=== PATIENT | male | born 1995 | race Asian ===

== ENCOUNTER 2018-01-20 12:22 | Emergency (ER) | payer MEDICAID ==
[2018-01-20 12:39] VITALS: BP 143/73
--- NOTE | 2018-01-20 13:11 | XRAY Preliminary Report ---
Exam: XR FOOT 3 VIEW LT IMPRESSION: No acute fracture or subluxation. [facility] SITE ID: [id number]
--- NOTE | 2018-01-20 13:12 | XRAY Report ---
EXAM: LEFT FOOT RADIOGRAPHY EXAM DATE: 01/20/2018 12:47 PM. CLINICAL HISTORY: Trauma. COMPARISON: None. TECHNIQUE: 3 views. FINDINGS: Bones: Normal. No fractures or bone lesions. Joints: Normal. No subluxations. Soft Tissues: There are mild linear dorsal hindfoot and midfoot soft tissue calcifications. IMPRESSION: No acute fracture or subluxation. [facility] Referring Provider Line: [phone] SITE ID: [id number]
--- NOTE | 2018-01-20 13:20 | XRAY Report ---
EXAM: LEFT ANKLE RADIOGRAPHY EXAM DATE: 01/20/2018 12:46 PM. CLINICAL HISTORY: Trauma. COMPARISON: None. TECHNIQUE: 3 views. FINDINGS: Bones: Normal. No fractures or bone lesions. Joints: Normal. No effusion. No subluxations. The ankle mortise is normally aligned. Soft Tissues: There is a corticated ossification located dorsal to the distal talus on the lateral im age. IMPRESSION: Negative for acute fracture and subluxation. [facility] Referring Provider Line: [phone] SITE ID: [id number]
--- NOTE | 2018-01-20 13:20 | XRAY Preliminary Report ---
Exam: XR ANKLE 3 VIEW LT IMPRESSION: Negative for acute fracture and subluxation. [facility] SITE ID: [id number]
--- NOTE | 2018-01-20 13:27 | ED Physician Documentation ---
History of Present Illness - Stated complaint Stated Complaint: LT FOOT PX - Chief complaint Chief Complaint: Ext Problem - History obtained from History obtained from: Patient - History of Present Illness Timing: How many weeks ago (2) Pain level max: 5 Pain level now: 4 Improved by: rest Worsened by: walking - Additonal information Additional information: 22 year old male rolled his L foot and ankle 2 weeks ago while playing soccer. States has continued pain since that time. No pain initially. State has pain with walking. Has not taken anything for pain. Review of Systems Neurologic: denies: Focal weakness, Numbness PD PAST MEDICAL HISTORY - Past Medical History Past Medical History: No - Past Surgical History Past Surgical History: No - Present Medications Home Medications: Ambulatory Orders Medication Instructions Recorded Confirmed Ibuprofen [Motrin] 800 mg PO Q8H PRN #30 tablet 01/20/18 - Allergies Allergies/Adverse Reactions: Allergies Allergy/AdvReac Type Severity Reaction Status Date / Time No Known Drug Allergies Allergy Verified 01/20/18 13:33 - Social History Does the pt smoke?: Yes Smoking Status: Current every day smoker Does the pt drink ETOH?: Yes ETOH Use: Beer, Liquor Does the pt have substance abuse?: Yes Substance Use and Type: Marijuana - Immunizations Immunizations are current?: Yes - POLST Patient has POLST: No PD ED PE NORMAL - Vitals Vital signs reviewed: Yes - General General: Alert and oriented X 3, No acute distress - Derm Derm: Warm and dry - Extremities Extremities: Other (L ankle/foot. Mild diffuse TTP over the dorsum of the L foot and anterior aspect of the ankle. o/w normal exam.) - Neuro Neuro: Alert and oriented X 3 - Psych Psych: Normal mood, Normal affect Results - Vitals Vitals: Vital Signs - 24 hr 01/20/18 12:29 Temperature 36.8 C Heart Rate 54 L Respiratory 16 Rate Blood Pressure 143/73 H O2 Saturation 100 - Rads (name of study) L foot xray Radiology: Prelim report reviewed, EMP read contemporaneously, See rad report ( normal) L ankle xray Radiology: Prelim report reviewed, EMP read contemporaneously, See rad report ( normal.) PD MEDICAL DECISION MAKING - ED course Complexity details: reviewed results, re-evaluated patient, considered differential, d/w patient ED course: Patient is a 22-year-old male who presents with a left foot sprain. Declines a walking boot and I think this is reasonable. Will place on crutches and make weightbearing as tolerated. Will prescribe NSAIDs for home. Patient counseled regarding signs and symptoms for which I believe and urgent re-evaluation would be necessary. Patient with good understanding of and agreement to plan and is comfortable going home at this time This document was made in part using voice recognition software. While efforts are made to proofread this document, sound alike and grammatical errors may occur. Departure - Departure Disposition: Home, Self Care Clinical Impression: Foot sprain Qualifiers: Encounter type: initial encounter Laterality: left Qualified Code(s): S93.602A - Unspecified sprain of left foot, initial encounter Condition: Good Instructions: ED Sprain Foot Follow-Up: your,doctor in 1 week [Other] Prescriptions: Ibuprofen [Motrin] 800 mg PO Q8H PRN #30 tablet PRN Reason: PAIN &/OR FEVER Comments: You may bear weight as tolerated. Follow up with your doctor in 1 week. Forms: Activity restrictions Discharge Date/Time: 01/20/18 13:41
== END 2018-01-20 13:41 | disposition home or self-care (01) ==
LOC: ED 12:22
DX: S93.602A Unspecified sprain of left foot, initial encounter (principal); X50.9XXA Other and unspecified overexertion or strenuous movements or postures, initial encounter; Y93.66 Activity, soccer; F17.200 Nicotine dependence, unspecified, uncomplicated
CPT/HCPCS: 99283

== ENCOUNTER 2018-09-01 14:38 | Emergency (ER) | payer MEDICAID ==
[2018-09-01 14:45] VITALS: BP 155/75
[2018-09-01] MEDS ORDERED: AZITHROMYCIN 250 MG TABLET PO STA ×2 (14:55→14:58)
--- NOTE | 2018-09-01 14:56 | ED Physician Documentation ---
History of Present Illness - Stated complaint Stated Complaint: LABS REQUESTED - Chief complaint Chief Complaint: General - History obtained from History obtained from: Patient - History of Present Illness Timing: Other (0His girlfriend tested positive for chlamydia about a week ago. He has no symptoms but would like to be tested and/or treated.) Review of Systems Constitutional: denies: Fever, Chills GI: denies: Abdominal Pain, Nausea, Vomiting : denies: Dysuria, Frequency PD PAST MEDICAL HISTORY - Past Surgical History Past Surgical History: No - Present Medications Home Medications: Ambulatory Orders Medication Instructions Recorded Confirmed Ibuprofen [Motrin] 800 mg PO Q8H PRN #30 tablet 01/20/18 - Allergies Allergies/Adverse Reactions: Allergies Allergy/AdvReac Type Severity Reaction Status Date / Time No Known Drug Allergies Allergy Verified 09/01/18 14:42 - Social History Does the pt smoke?: Yes Smoking Status: Current every day smoker Does the pt drink ETOH?: Yes Does the pt have substance abuse?: Yes - Immunizations Immunizations are current?: Yes - POLST Patient has POLST: No PD ED PE NORMAL - Vitals Vital signs reviewed: Yes - General General: Alert and oriented X 3, No acute distress - Abdomen Abdomen: Normal bowel sounds, Soft, Non tender - Neuro Neuro: Alert and oriented X 3, Normal speech Results - Vitals Vitals: Vital Signs - 24 hr 09/01/18 14:39 Temperature 36.2 C L Heart Rate 93 Respiratory 20 Rate Blood Pressure 155/75 H O2 Saturation 100 Departure - Departure Disposition: Home, Self Care Clinical Impression: Concern about STD in male without diagnosis Condition: Good Record reviewed to determine appropriate education?: Yes Instructions: ED STD Male Treated Comments: Your blood pressure was elevated today on check into the emergency department. This does not mean that you have hypertension, it is a common phenomenon to come to the emergency department and have elevated blood pressure. I recommend that you see your primary care physician within the week to have it rechecked when you are feeling better.
== END 2018-09-01 15:06 | disposition home or self-care (01) ==
LOC: ED 14:38
DX: Z20.2 Contact with and (suspected) exposure to infections with a predominantly sexual mode of transmission (principal); R03.0 Elevated blood-pressure reading, without diagnosis of hypertension; F17.200 Nicotine dependence, unspecified, uncomplicated
CPT/HCPCS: 87491; 87591; 99281; 99283; A9270

== ENCOUNTER 2018-09-18 15:20 | Emergency (ER) | payer MEDICAID ==
--- NOTE | 2018-09-18 16:20 | ED Physician Documentation ---
PD HPI SKIN - Stated complaint Stated Complaint: FACE SWOLLEN/RASH - Chief complaint Chief Complaint: Wound - History obtained from History obtained from: Patient - History of Present Illness Timing - onset: How many weeks ago (3) Timing - duration: Weeks (3) Timing - details: Gradual onset, Still present Location: Face, RUE, LUE Quality / character: Itchy, Discolored, Swelling Associated symptoms: Facial swelling. No: Fever, Myalgias, Joint pain, Headache, Dyspnea, Abd pain, N/V/D, Urinary sx Contributing factors: Exposed to soap / lotion, Other (wears latex gloves at work) Similar symptoms before: Has not had sx before Recently seen: Emergency Dept - Additional information Additional information: 22-year-old male reports that he is developed some itching and rash to the top of his hands bilaterally and on the dorsum only. He has had this for about 3 weeks it itches a lot and he does note that he wears latex gloves at work. He has been wearing his latex gloves for years and he does not think this is the issue. He does have allergy to lavender and he also indicates that his face is now broken out over the past week after shampooing his hair with a pomegranate shampoo. He states this happened immediately afterward and has persisted. He is also recently been treated for chlamydia and he states that he did have intercourse again with a condom he is concerned about this and wants to be retested and treated. Review of Systems Constitutional: denies: Fever, Chills, Myalgias Eyes: denies: Decreased vision Ears: denies: Ear pain Nose: denies: Rhinorrhea / runny nose, Congestion Throat: denies: Sore throat Cardiac: denies: Chest pain / pressure, Palpitations Respiratory: denies: Dyspnea, Cough GI: denies: Abdominal Pain, Nausea, Vomiting : denies: Dysuria, Frequency, Discharge Skin: reports: Rash Musculoskeletal: denies: Neck pain, Back pain, Extremity pain Neurologic: denies: Generalized weakness, Focal weakness, Numbness PD PAST MEDICAL HISTORY - Past Medical History Past Medical History: No Cardiovascular: None Respiratory: Asthma Neuro: None Endocrine/Autoimmune: None GI: None : None HEENT: None Psych: ADD/ADHD Musculoskeletal: None Derm: None - Past Surgical History Past Surgical History: No - Present Medications Home Medications: Ambulatory Orders Medication Instructions Recorded Confirmed Ibuprofen [Motrin] 800 mg PO Q8H PRN #30 tablet 01/20/18 Azithromycin [Zithromax] 250 mg PO DAILY #6 tablet 09/18/18 predniSONE [Deltasone] 10 mg PO ONCE #26 tablet 09/18/18 - Allergies Allergies/Adverse Reactions: Allergies Allergy/AdvReac Type Severity Reaction Status Date / Time lavender (Lavandula Allergy Unknown Verified 09/18/18 15:34 angustifolia) pomegranate Allergy Unknown Verified 09/18/18 15:34 metal Allergy Unknown Uncoded 09/18/18 15:34 - Social History Does the pt smoke?: Yes Smoking Status: Current every day smoker Does the pt drink ETOH?: Yes Does the pt have substance abuse?: Yes Substance Use and Type: Marijuana - Immunizations Immunizations are current?: Yes - POLST Patient has POLST: No PD ED PE NORMAL - Vitals Vital signs reviewed: Yes (hypertensive ) - General General: Alert and oriented X 3, No acute distress, Well developed/nourished - HEENT HEENT: Atraumatic, PERRL, EOMI, Other (There is dry flaking skin over the face anteriorly the eyes are mildly swollen all consistent with an improving contact dermatitis. ) - Neck Neck: Supple, no meningeal sign, No bony TTP - Respiratory Respiratory: No respiratory distress - Derm Derm: Normal color, Warm and dry, Other (over the dorsum of the hands and ending at the distal wrist the appearance is non-specific consistent with a contact dermatitis --- looks just like an allergy to latex. 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, No motor deficit, No sensory deficit, Normal speech Eye Opening: Spontaneous Motor: Obeys Commands Verbal: Oriented GCS Score: 15 - Psych Psych: Normal mood, Normal affect Results - Vitals Vitals: Vital Signs - 24 hr 09/18/18 15:28 Temperature 36.6 C Heart Rate 64 Respiratory 16 Rate Blood Pressure 144/69 H O2 Saturation 99 Oxygen O2 Source Room air PD MEDICAL DECISION MAKING - ED course Complexity details: considered differential, d/w patient ED course: 22-year-old male with a rash to his hands and face both of which appear to be a contact type of dermatitis I believe the contact of the hands is latex in the contact of the face he has pomegranate as the patient has indicated. He has a prior reaction to Lavender as well. We will place him on a course of prednisone and we will administer a Z-Arsen as well as the patient is consumed by the thought of treatment. Departure - Departure Disposition: Home, Self Care Clinical Impression: STD exposure Contact dermatitis Qualifiers: Contact dermatitis type: irritant Contact dermatitis trigger: other trigger Qualified Code(s): L24.89 - Irritant contact dermatitis due to other agents Condition: Stable Instructions: ED Dermatitis Contact, ED Urethritis Chlamydia Male Follow-Up: [facility] [Provider Group] Prescriptions: Azithromycin [Zithromax] 250 mg PO DAILY #6 tablet predniSONE [Deltasone] 10 mg PO ONCE #26 tablet Forms: Activity restrictions
[2018-09-18 17:11] VITALS: BP 129/66
== END 2018-09-18 17:11 | disposition home or self-care (01) ==
LOC: ED 15:20
DX: L24.89 Irritant contact dermatitis due to other agents (principal); Z20.2 Contact with and (suspected) exposure to infections with a predominantly sexual mode of transmission
CPT/HCPCS: 87491; 87591; 99283

== ENCOUNTER 2018-10-14 20:14 | Emergency (ER) | payer MEDICAID ==
[2018-10-14] MEDS ORDERED: BUFFERED LIDOCAINE 10 ML SYRINGE SUBQ STA (20:50)
--- NOTE | 2018-10-14 21:10 | ED Physician Documentation ---
PD HPI SKIN - Stated complaint Stated Complaint: MALE - Chief complaint Chief Complaint: Wound - Additional information Additional information: 22-year-old male was started on Bactrim for a right groin cellulitis, he returns today for swelling and concern for an abscess. No fevers or chills. No leg swelling. No other associated symptoms or issues. Review of Systems Constitutional: denies: Fever, Fatigue Eyes: denies: Discharge Ears: denies: Ear pain Nose: denies: Congestion Cardiac: denies: Chest pain / pressure Skin: reports: Other (Abscess) Neurologic: denies: Generalized weakness PD PAST MEDICAL HISTORY - Past Medical History Past Medical History: Yes Cardiovascular: None Respiratory: Asthma Neuro: None Endocrine/Autoimmune: None GI: None : None HEENT: None Psych: ADD/ADHD Musculoskeletal: None Derm: None - Past Surgical History Past Surgical History: No - Present Medications Home Medications: Ambulatory Orders Medication Instructions Recorded Confirmed Sulfamethoxazole/Trimethoprim 1 tab PO BID 10/14/18 10/14/18 [Sulfamethoxazole-Tmp Ds Tablet] - Allergies Allergies/Adverse Reactions: Allergies Allergy/AdvReac Type Severity Reaction Status Date / Time lavender (Lavandula Allergy Unknown Verified 10/14/18 20:21 angustifolia) pomegranate Allergy Unknown Verified 10/14/18 20:21 metal Allergy Unknown Uncoded 10/14/18 20:21 - Social History Does the pt smoke?: Yes Smoking Status: Current every day smoker Does the pt drink ETOH?: Yes Does the pt have substance abuse?: Yes - Immunizations Immunizations are current?: Yes - POLST Patient has POLST: No PD ED PE NORMAL - General General: Alert and oriented X 3, No acute distress - HEENT HEENT: Atraumatic, PERRL, EOMI, Ears normal - Extremities Extremities: No deformity, Normal ROM s pain, No edema - Neuro Neuro: Alert and oriented X 3, Normal speech - Psych Psych: Normal mood PD ED PE EXPANDED - Derm SKin visual: 1 - abscess (3 x 2 cm area of induration and fluctuation surrounding erythema: A bedside ultrasound was done using the linear probe which confirmed a fluid collection) Results - Vitals Vitals: Vital Signs - 24 hr 10/14/18 20:19 Temperature 36.7 C Heart Rate 95 Respiratory 18 Rate Blood Pressure 162/78 H O2 Saturation 98 Oxygen O2 Source Room air Procedures - Abscess I&D (location) Other right Preparation: Confirmed with ultrasound, Betadine, Lidocaine 1% Incision: Incised with scalpel, Purulent drainage, Packed Other: Pt tolerated well, Dressing applied PD MEDICAL DECISION MAKING - ED course ED course: A fair amount of purulent material was drained from this abscess, the abscess was packed and I recommended returning in 48 hours for a wound recheck. The patient is already on antibiotics and I advised to continue the the course of antibiotics. No signs of sepsis. The patient will return for any other worsening or any concerns Departure - Departure Disposition: 01 Home, Self Care Clinical Impression: Abscess, groin Condition: Good Instructions: ED Abscess IandD Comments: Please return in 48 hours for a wound recheck and packing removal Please return to the emergency department immediately for any worsening or any concerns Please continue to take your Bactrim as prescribed Forms: Activity restrictions
[2018-10-14 21:25] VITALS: BP 138/79
== END 2018-10-14 21:25 | disposition home or self-care (01) ==
LOC: ED 20:14
DX: L02.214 Cutaneous abscess of groin (principal); F17.200 Nicotine dependence, unspecified, uncomplicated
CPT/HCPCS: 10060; 99282; 99283

== ENCOUNTER 2018-10-16 16:12 | Emergency (ER) | payer MEDICAID ==
[2018-10-16 16:32] VITALS: BP 141/80
--- NOTE | 2018-10-16 16:45 | ED Physician Documentation ---
PD HPI WOUND RECHECK - Stated complaint Stated Complaint: GAUZE REMOVAL - Chief complaint Chief Complaint: Wound - Histroy obtained from History obtained from: Patient - History of Present Illness Location: Right Lower Extremity Timing - onset: How many days ago (2) Associated symptoms: Drainage Similar symptoms before: Diagnosis (abscess) Recently seen: Emergency Dept - Additional information Additional information: 22-year-old male was placed on antibiotics for an abscess in the right groin it progressed and ripened and was incised and drained 2 days ago. Packing was placed and the patient has been asked to come back to the emergency department for a wound check. He states that his pain dramatically improved after incision and drainage and he has no specific complaints at this time. He has been taking Septra. He has had some improvement in his contact dermatitis. Review of Systems Constitutional: denies: Fever Eyes: denies: Decreased vision Ears: denies: Ear pain Nose: denies: Congestion Throat: denies: Sore throat Respiratory: denies: Cough GI: denies: Abdominal Pain, Nausea, Vomiting : denies: Dysuria Skin: reports: Lesions Musculoskeletal: reports: Extremity pain. denies: Neck pain, Back pain Neurologic: denies: Generalized weakness, Focal weakness, Numbness PD PAST MEDICAL HISTORY - Past Medical History Cardiovascular: None Respiratory: Asthma Neuro: None Endocrine/Autoimmune: None GI: None : None HEENT: None Psych: ADD/ADHD Musculoskeletal: None Derm: None - Past Surgical History Past Surgical History: No - Present Medications Home Medications: Ambulatory Orders Medication Instructions Recorded Confirmed Sulfamethoxazole/Trimethoprim 1 tab PO BID 10/14/18 10/14/18 [Sulfamethoxazole-Tmp Ds Tablet] - Allergies Allergies/Adverse Reactions: Allergies Allergy/AdvReac Type Severity Reaction Status Date / Time lavender (Lavandula Allergy Unknown Verified 10/14/18 20:21 angustifolia) pomegranate Allergy Unknown Verified 10/14/18 20:21 metal Allergy Unknown Uncoded 10/14/18 20:21 - Social History Does the pt smoke?: Yes Smoking Status: Current every day smoker Does the pt drink ETOH?: Yes Does the pt have substance abuse?: Yes - Immunizations Immunizations are current?: Yes - POLST Patient has POLST: No PD ED PE NORMAL - Vitals Vital signs reviewed: Yes (hypertensive ) - General General: Alert and oriented X 3, No acute distress, Well developed/nourished - HEENT HEENT: Atraumatic, PERRL, EOMI - Respiratory Respiratory: No respiratory distress - Derm Derm: Normal color, Warm and dry, No rash - Extremities Extremities: No deformity, No edema, Other (in the Right inguinal area there is an abcess cavity with packing in place. There is no significant eythema or swelling. 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 The portion of the packing is removed and cut and I have instructed the patient to remove the remainder of the packing in the next 2 days. Wound appears to be healing well there are no signs of progression. Departure - Departure Disposition: 01 Home, Self Care Clinical Impression: Abscess, groin Condition: Stable Instructions: ED Abscess IandD Follow-Up: [facility] [Provider Group] Comments: Continue your antibiotic and remove the remainder of the packing over the next 2 days. Expect your symptoms to improve day by day.
== END 2018-10-16 16:51 | disposition home or self-care (01) ==
LOC: ED 16:12
DX: L02.214 Cutaneous abscess of groin (principal); L25.9 Unspecified contact dermatitis, unspecified cause; F17.200 Nicotine dependence, unspecified, uncomplicated
CPT/HCPCS: 99282

== ENCOUNTER 2018-10-24 02:13 | Emergency (ER) | payer MEDICAID ==
[2018-10-24 02:24] VITALS: BP 137/80
--- NOTE | 2018-10-24 02:32 | ED Physician Documentation ---
PD HPI SKIN - Stated complaint Stated Complaint: MRSA RT LEG,COUGH - Chief complaint Chief Complaint: Wound - History obtained from History obtained from: Patient - History of Present Illness Timing - onset: How many weeks ago (2) Timing - duration: Weeks (2) Timing - details: Gradual onset Pain level max: 0 Pain level now: 0 Severity Comments: mild Location: RLE, LLE Quality / character: Other (Red) Improved by: Other (nothing) Associated symptoms: No: Fever, Myalgias, Joint pain Review of Systems Ten Systems: 10 systems reviewed and negative Constitutional: reports: Reviewed and negative Eyes: reports: Reviewed and negative Ears: reports: Reviewed and negative Nose: reports: Reviewed and negative Throat: reports: Reviewed and negative Cardiac: reports: Reviewed and negative Respiratory: reports: Reviewed and negative GI: reports: Reviewed and negative : reports: Reviewed and negative Skin: reports: Reviewed and negative Musculoskeletal: reports: Reviewed and negative Neurologic: reports: Reviewed and negative Psychiatric: reports: Reviewed and negative Endocrine: reports: Reviewed and negative Immunocompromised: reports: Reviewed and negative PD PAST MEDICAL HISTORY - Past Medical History Past Medical History: Yes Cardiovascular: None Respiratory: Asthma Neuro: None Endocrine/Autoimmune: None GI: None : None HEENT: None Psych: ADD/ADHD Musculoskeletal: None Derm: None - Past Surgical History Past Surgical History: No - Present Medications Home Medications: Ambulatory Orders Medication Instructions Recorded Confirmed Sulfamethoxazole/Trimethoprim 1 tab PO BID 10/14/18 10/14/18 [Sulfamethoxazole-Tmp Ds Tablet] Clindamycin HCl [Clindamycin 300MG 300 mg PO Q6H #40 capsule 10/24/18 CAP] - Allergies Allergies/Adverse Reactions: Allergies Allergy/AdvReac Type Severity Reaction Status Date / Time lavender (Lavandula Allergy Unknown Verified 10/24/18 02:24 angustifolia) pomegranate Allergy Unknown Verified 10/24/18 02:24 metal Allergy Unknown Uncoded 10/24/18 02:24 - Living Situation Living Situation: reports: Alone Living Arrangement: reports: At home - Social History Does the pt smoke?: Yes Smoking Status: Current every day smoker Does the pt drink ETOH?: Yes Does the pt have substance abuse?: Yes - Family History Family history: reports: Other (Reviewed and not pertinent) - Immunizations Immunizations are current?: Yes - POLST Patient has POLST: No PD ED PE NORMAL - Vitals Vital signs reviewed: Yes - General General: Alert and oriented X 3, No acute distress - HEENT HEENT: PERRL - Neck Neck: Supple, no meningeal sign - Cardiac Cardiac: RRR, No murmur - Respiratory Respiratory: Clear bilaterally - Abdomen Abdomen: Normal bowel sounds, Soft, Non tender, Non distended - Derm Derm: Warm and dry - Extremities Extremities: No deformity, Other (Right lower extremity with old abscesses with surrounding redness. No fluctuance.) - Neuro Neuro: Alert and oriented X 3 - Psych Psych: Normal mood, Normal affect Results - Vitals Vitals: Vital Signs - 24 hr 10/24/18 02:15 Temperature 36.8 C Heart Rate 81 Respiratory 17 Rate Blood Pressure 137/80 H O2 Saturation 100 Oxygen O2 Source Room air PD MEDICAL DECISION MAKING - ED course Complexity details: re-evaluated patient, considered differential, d/w patient ED course: 22-year-old male with right leg cellulitis. Discharged on clindamycin. Departure - Departure Disposition: 01 Home, Self Care Clinical Impression: Cellulitis Qualifiers: Site of cellulitis: extremity Site of cellulitis of extremity: lower extremity Condition: Stable Instructions: ED Infec Skin Cellulitis Follow-Up: Your, PCP [Other] Prescriptions: Clindamycin HCl [Clindamycin 300MG CAP] 300 mg PO Q6H #40 capsule Discharge Date/Time: 10/24/18 02:35
== END 2018-10-24 02:35 | disposition home or self-care (01) ==
LOC: ED 02:13
DX: L03.115 Cellulitis of right lower limb (principal)
CPT/HCPCS: 99283

== ENCOUNTER 2018-11-26 09:49 | Emergency (ER) | payer MEDICAID ==
--- NOTE | 2018-11-26 12:04 | ED Physician Documentation ---
History of Present Illness - Stated complaint Stated Complaint: BACK ABCESS/MALE - Chief complaint Chief Complaint: Wound - History obtained from History obtained from: Patient - Additonal information Additional information: Patient is a previously healthy 23-year-old male presenting with concern for small abscess to his back. Patient reports this started several days ago as a pimple and he has been able to drain it on its own. Patient complains of moderate pain and surrounding redness, but denies fever, abdominal pain, urinary or stool changes, or vomiting. Patient then raises concern for possible chlamydia. Patient states he has had chlamydia in the past but has been appropriately treated. No known new exposures or new groin or testicular complaints. No penile changes or urinary changes. Patient otherwise denies any improving or worsening factors to his symptoms. Review of Systems Constitutional: denies: Fever Skin: reports: Other (abscess) PD PAST MEDICAL HISTORY - Past Medical History Past Medical History: Yes Cardiovascular: None Respiratory: Asthma Neuro: None Endocrine/Autoimmune: None GI: None : None HEENT: None Psych: ADD/ADHD Musculoskeletal: None Derm: None - Past Surgical History Past Surgical History: No - Present Medications Home Medications: Ambulatory Orders Medication Instructions Recorded Confirmed Sulfamethoxazole/Trimethoprim 1 tab PO BID 10/14/18 10/14/18 [Sulfamethoxazole-Tmp Ds Tablet] RX: Clindamycin HCl [Clindamycin 300 mg PO Q6H #40 capsule 10/24/18 300MG CAP] Cephalexin [Keflex] 500 mg PO Q6H #28 capsule 11/26/18 Sulfamethox/Trimeth 800/160 1 each PO BID #14 tablet 11/26/18 [Bactrim Ds 800/160] - Allergies Allergies/Adverse Reactions: Allergies Allergy/AdvReac Type Severity Reaction Status Date / Time lavender (Lavandula Allergy Unknown Verified 11/26/18 10:15 angustifolia) pomegranate Allergy Unknown Verified 11/26/18 10:15 metal Allergy Unknown Uncoded 11/26/18 10:15 - Social History Does the pt smoke?: Yes Smoking Status: Current every day smoker Does the pt drink ETOH?: Yes ETOH Use: Beer Does the pt have substance abuse?: No Substance Use and Type: Marijuana - Immunizations Immunizations are current?: Yes - POLST Patient has POLST: No PD ED PE NORMAL - General General: Alert and oriented X 3, No acute distress, Well developed/nourished - Cardiac Cardiac: RRR, No murmur - Respiratory Respiratory: No respiratory distress, Clear bilaterally - Abdomen Abdomen: Normal bowel sounds, Soft, Non tender, Non distended - Derm Derm: Normal color, Warm and dry, No rash, Other (Less than quarter sized absce ss to left mid back with mild erythema surrounding, no fluctuance or other complications noted) - Neuro Neuro: Alert and oriented X 3, No motor deficit, No sensory deficit - Psych Psych: Normal mood, Normal affect Results - Vitals Vitals: Vital Signs - 24 hr 11/26/18 11/26/18 10:11 13:03 Temperature 36.4 C L Heart Rate 75 78 Respiratory 14 18 Rate Blood Pressure 142/109 H 150/78 H O2 Saturation 98 98 Oxygen O2 Source Room air PD MEDICAL DECISION MAKING - ED course Complexity details: considered differential, d/w patient ED course: Patient has presented previously for abscesses. On today's exam,Patient has uncomplicated small abscess to the back that has already drained. No areas of fluctuance that would be amenable to further drainage. No other signs of acute disease process or systemic illness present. Will treat appropriately with outpatient antibiotics. Also advised on supportive cares and return precautions for such. Patient also had vague concerns for chlamydia although no known exposures or symptoms. Urinalysis obtained for GC testing and advised patient that he will be contacted if results return positive. Patient voiced understanding and is comfortable with discharge plan. Departure - Departure Disposition: 01 Home, Self Care Clinical Impression: Abscess Condition: Good Instructions: ED Staph Infec Abx Tx Only Follow-Up: your,doctor [Other] - Within 3 Days Prescriptions: Cephalexin [Keflex] 500 mg PO Q6H #28 capsule Sulfamethox/Trimeth 800/160 [Bactrim Ds 800/160] 1 each PO BID #14 tablet Comments: Please take antibiotics as prescribed to treat skin abscess. Recommend taking medications with food to avoid upset stomach. Please keep abscess area clean and dry using running water and soap only to clean. Do not need to apply anything topical to the area. Please follow-up with primary care physician next 2-3 days and return to ED sooner if expands worsening symptoms or other concerns. Discharge Date/Time: 11/26/18 13:03
[2018-11-26 13:04] VITALS: BP 150/78
== END 2018-11-26 13:03 | disposition home or self-care (01) ==
LOC: ED 09:49
DX: L02.212 Cutaneous abscess of back [any part, except buttock and flank] (principal); F17.200 Nicotine dependence, unspecified, uncomplicated
CPT/HCPCS: 87491; 87591; 99283

== ENCOUNTER 2019-03-14 13:56 | Emergency (ER) | payer MEDICAID ==
[2019-03-14 14:02] VITALS: BP 104/84
--- NOTE | 2019-03-14 14:06 | ED Physician Documentation ---
PD HPI URI - Stated complaint Stated Complaint: SOA/COUGH - Chief complaint Chief Complaint: Resp - History obtained from History obtained from: Patient - History of Present Illness Timing - onset: How many days ago (2) Timing duration: Days (2) Timing details: Gradual onset, Still present Associated symptoms: Nasal congestion, Dry cough, Dyspnea. No: Fever, Sore throat, NVD Contributing factors: COPD / asthma. No: Sick contact Improves by: MDI/nebulizer (but ran out of his Albuterol.) Similar symptoms before: Diagnosis (URI with exac asthma.) Review of Systems Constitutional: reports: Myalgias. denies: Fever, Chills Nose: reports: Rhinorrhea / runny nose, Congestion Throat: denies: Sore throat Respiratory: reports: Dyspnea, Cough, Wheezing GI: denies: Vomiting, Diarrhea Skin: denies: Rash PD PAST MEDICAL HISTORY - Past Medical History Cardiovascular: None Respiratory: Asthma Neuro: None Endocrine/Autoimmune: None GI: None : None HEENT: None Psych: ADD/ADHD Musculoskeletal: None Derm: None - Past Surgical History Past Surgical History: No - Present Medications Home Medications: Ambulatory Orders Medication Instructions Recorded Confirmed Albuterol Sulf [Ventolin Hfa 2 puffs INH Q4HR PRN #1 inhaler 03/14/19 Inhaler] Benzonatate [Tessalon Perle] 100 mg PO TID PRN #25 capsule 03/14/19 Doxycycline Hyclate 100 mg PO BID #14 capsule 03/14/19 dexAMETHasone [Decadron] 4 mg PO DAILY #7 tablet 03/14/19 - Allergies Allergies/Adverse Reactions: Allergies Allergy/AdvReac Type Severity Reaction Status Date / Time lavender (Lavandula Allergy Unknown Verified 11/26/18 10:15 angustifolia) pomegranate Allergy Unknown Verified 11/26/18 10:15 metal Allergy Unknown Uncoded 11/26/18 10:15 - Social History Does the pt smoke?: Yes Smoking Status: Current every day smoker Does the pt drink ETOH?: Yes Does the pt have substance abuse?: No - Immunizations Immunizations are current?: Yes - POLST Patient has POLST: No PD ED PE NORMAL - Vitals Vital signs reviewed: Yes - General General: Alert and oriented X 3, No acute distress, Well developed/nourished - HEENT HEENT: Ears normal, Pharynx benign - Neck Neck: Supple, no meningeal sign, No adenopathy - Cardiac Cardiac: RRR - Respiratory Respiratory: No: Clear bilaterally (diffuse mid to holo expiratory wheezing. No coarse sounds. ) - Abdomen Abdomen: Soft, Non tender - Derm Derm: Normal color, Warm and dry, No rash - Neuro Neuro: Alert and oriented X 3, No motor deficit, Normal speech Results - Vitals Vitals: Vital Signs - 24 hr 03/14/19 03/14/19 03/14/19 14:00 15:40 15:59 Temperature 36.7 C Heart Rate 77 71 64 Respiratory 16 16 16 Rate Blood Pressure 104/84 H O2 Saturation 98 97 Oxygen O2 Source Room air Departure - Departure Disposition: 01 Home, Self Care Clinical Impression: Upper respiratory infection Qualifiers: URI type: unspecified URI Qualified Code(s): J06.9 - Acute upper respiratory infection, unspecified Exacerbation of asthma Qualifiers: Asthma severity: mild Asthma persistence: intermittent Qualified Code(s): J45.21 - Mild intermittent asthma with (acute) exacerbation Condition: Stable Record reviewed to determine appropriate education?: Yes Instructions: ED URI Viral W Wheezing Prescriptions: Albuterol Sulf [Ventolin Hfa Inhaler] 2 puffs INH Q4HR PRN #1 inhaler PRN Reason: Shortness Of Air/Wheezing Benzonatate [Tessalon Perle] 100 mg PO TID PRN #25 capsule PRN Reason: Cough dexAMETHasone [Decadron] 4 mg PO DAILY #7 tablet Doxycycline Hyclate 100 mg PO BID #14 capsule Comments: Use albuterol inhaler 2 to 3 puffs 4 times a day for the next week and extra times as needed for wheezing. Decadron steroid for inflammation of the airways daily for the next week. Add Tessalon if needed for cough. Doxycycline antibiotic for possible bacterial infection. Recheck if not improving over the next few days. Discharge Date/Time: 03/14/19 15:59
[2019-03-14] MEDS ORDERED: ALBUTEROL NEB 2.5 MG/3 ML INH STA (14:57)
[2019-03-14] MEDS ORDERED: CHERRY SYRUP 10 ML UDC PO ONE (14:58)
[2019-03-14] MEDS ORDERED: BENZONATATE 100 MG CAPSULE PO STA (14:58)
[2019-03-14] MEDS ORDERED: DEXAMETHASONE 10 MG/ML VIAL PO STA (14:58)
[2019-03-14] MEDS ORDERED: DOXYCYCLINE 100 MG TABLET PO STA (14:58)
== END 2019-03-14 15:59 | disposition home or self-care (01) ==
LOC: ED 13:56
DX: J06.9 Acute upper respiratory infection, unspecified (principal); J45.901 Unspecified asthma with (acute) exacerbation; F17.200 Nicotine dependence, unspecified, uncomplicated
CPT/HCPCS: 94640; 99284; A9270

== ENCOUNTER 2020-03-08 23:50 | Emergency (ER) | payer SELFPAY ==
[2020-03-09] VITALS: BP 149/100
[2020-03-09] MEDS ORDERED: TETANUS/DIPHTHERIA/PERTUSSIS 0.5 ML SYRINGE IM ONE (00:28)
--- NOTE | 2020-03-09 00:28 | ED Physician Documentation ---
History of Present Illness - Stated complaint Stated Complaint: ARM LAC - Chief complaint Chief Complaint: Laceration - History obtained from History obtained from: Patient (Patient is a 24-year-old male who is left-hand dominant presents with chief complaint of right volar forearm laceration after he cooking in the kitchen accidentally cut himself he denies any other complaints.) Review of Systems Constitutional: reports: Reviewed and negative Eyes: reports: Reviewed and negative Ears: reports: Reviewed and negative Nose: reports: Reviewed and negative Throat: reports: Reviewed and negative Cardiac: reports: Reviewed and negative Respiratory: reports: Reviewed and negative GI: reports: Reviewed and negative : reports: Reviewed and negative Skin: reports: Laceration (s) Musculoskeletal: reports: Reviewed and negative Neurologic: reports: Reviewed and negative Psychiatric: reports: Reviewed and negative Endocrine: reports: Reviewed and negative Immunocompromised: reports: Reviewed and negative PD PAST MEDICAL HISTORY - Past Medical History Cardiovascular: None Respiratory: Asthma Neuro: None Endocrine/Autoimmune: None GI: None : None HEENT: None Psych: ADD/ADHD Musculoskeletal: None Derm: None - Past Surgical History Past Surgical History: No - Present Medications Home Medications: Ambulatory Orders Medication Instructions Recorded Confirmed Albuterol Sulf [Ventolin Hfa 2 puffs INH Q4HR PRN #1 inhaler 03/14/19 Inhaler] Benzonatate [Tessalon Perle] 100 mg PO TID PRN #25 capsule 03/14/19 Doxycycline Hyclate 100 mg PO BID #14 capsule 03/14/19 dexAMETHasone [Decadron] 4 mg PO DAILY #7 tablet 03/14/19 - Allergies Allergies/Adverse Reactions: Allergies Allergy/AdvReac Type Severity Reaction Status Date / Time lavender (Lavandula Allergy Unknown Verified 03/08/20 23:52 angustifolia) pomegranate Allergy Unknown Verified 03/08/20 23:52 metal Allergy Unknown Uncoded 03/08/20 23:52 - Social History Does the pt smoke?: Yes Smoking Status: Current every day smoker Does the pt drink ETOH?: Yes Does the pt have substance abuse?: No - Immunizations Immunizations are current?: Yes - POLST Patient has POLST: No PD ED PE NORMAL - Vitals Vital signs reviewed: Yes - General General: Alert and oriented X 3, No acute distress - HEENT HEENT: PERRL - Neck Neck: Supple, no meningeal sign - Cardiac Cardiac: RRR, No murmur - Respiratory Respiratory: Clear bilaterally - Abdomen Abdomen: Normal bowel sounds, Soft, Non tender, Non distended - Derm Derm: Warm and dry, Other (2 cm laceration to the volar aspect of the right forearm.) - Extremities Extremities: No deformity, Other (2 cm laceration to the volar aspect of the right forearm. Radian, median, ulnar motor and sensory exam are intact no foreign bodies identified no involvement of tendons Sensations intact light touch neurovascular intact compartments soft.) - Neuro Neuro: Alert and oriented X 3 - Psych Psych: Normal mood, Normal affect Results - Vitals Vitals: Vital Signs - 24 hr 03/08/20 23:53 Temperature 36.5 C Heart Rate 77 Respiratory 16 Rate Blood Pressure 149/100 H O2 Saturation 95 Oxygen O2 Source Room air Procedures - Laceration (location) Upper extremity right Palmar Length in cm: 2 Wound type: Linear Neurovascular status: Sensory intact, Motor intact, Vascular intact Tendon involvement: Tendon intact Anesthesia: Lidocaine 2% with epi, Volume - enter cc (1) Wound Preparation: Irrigated copiously NS, Other (No foreign bodies identified) Skin layer closure: Nylon, Size #-0 - enter number (4), Sutures - enter # (3) Other: Patient tolerated well, No complications, Neurovascular intact, Tetanus booster given Complexity: Simple PD MEDICAL DECISION MAKING - ED course Complexity details: considered differential (Simple laceration closed with 3 simple interrupted sutures patient tolerated well post exam shows him to be neurovascular intact tetanus updated.) Departure - Departure Disposition: 01 Home, Self Care Clinical Impression: Laceration Condition: Stable Instructions: ED Laceration All Follow-Up: your, doctor [Other] Comments: Follow-up for suture removal in 7 to 10 days. Keep wound clean dry and protected at all times.
[2020-03-09] MEDS ORDERED: LIDOCAINE 2%-EPI 1:100000 20 ML MDV SUBQ STA (00:34)
[2020-03-09] MEDS ORDERED: LIDOCAINE 2%-EPI 1:100000 20 ML MDV ONE (00:40)
[2020-03-09] MEDS ORDERED: BACITRACIN ZINC OINT 1 PACKET TOP STA (00:52)
== END 2020-03-09 01:05 | disposition home or self-care (01) ==
LOC: ED 23:50
DX: S51.811A Laceration without foreign body of right forearm, initial encounter (principal); W26.0XXA Contact with knife, initial encounter; Y93.G3 Activity, cooking and baking; Y92.000 Kitchen of unspecified non-institutional (private) residence as the place of occurrence of the external cause; Z23 Encounter for immunization; F17.200 Nicotine dependence, unspecified, uncomplicated
CPT/HCPCS: 12001; 90471; 99282; 99283

== ENCOUNTER 2020-12-18 18:49 | Emergency (ER) | payer SELFPAY ==
[2020-12-18 19:03] VITALS: BP 135/82
--- OUTSIDE RECORDS SUMMARY | 2020-12-18 19:17 | EXTERNAL MEDICAL SUMMARY RPT | Continuity of Care Document ---
:1995 Demographics Phone Unavailable Preferred Language Unknown Marital Status Unknown Mandaeism Affiliation Unknown Race Unknown Ethnic Group Unknown Author Organization [facility] Address [address] [place] [address] Phone Social History date description facility [phone]
[2020-12-18] MEDS ORDERED: BUFFERED LIDOCAINE 10 ML SYRINGE SUBQ STA (19:21)
--- NOTE | 2020-12-18 19:39 | ED Physician Documentation ---
PD HPI LOWER EXT INJURY - Stated complaint Stated Complaint: LT ARM LAC - Chief complaint Chief Complaint: Laceration - History obtained from History obtained from: Patient (Young man with up-to-date tetanus status was working on his car just prior to arrival and sustained a left forearm laceration from a car part.) Review of Systems Constitutional: reports: Reviewed and negative Eyes: reports: Reviewed and negative Ears: reports: Reviewed and negative Nose: reports: Reviewed and negative Throat: reports: Reviewed and negative PD PAST MEDICAL HISTORY - Past Medical History Cardiovascular: None Respiratory: Asthma Neuro: None Endocrine/Autoimmune: None GI: None : None HEENT: None Psych: ADD/ADHD Musculoskeletal: None Derm: None - Past Surgical History Past Surgical History: No - Present Medications Home Medications: Ambulatory Orders Medication Instructions Recorded Confirmed Albuterol Sulf [Ventolin Hfa 2 puffs INH Q4HR PRN #1 inhaler 03/14/19 12/18/20 Inhaler] - Allergies Allergies/Adverse Reactions: Allergies Allergy/AdvReac Type Severity Reaction Status Date / Time lavender (Lavandula Allergy Unknown Verified 12/18/20 19:03 angustifolia) pomegranate Allergy Unknown Verified 12/18/20 19:03 metal Allergy Unknown Uncoded 12/18/20 19:03 - Social History Does the pt smoke?: Yes Smoking Status: Current every day smoker Does the pt drink ETOH?: Yes Does the pt have substance abuse?: Yes Substance Use and Type: Marijuana - Immunizations Immunizations are current?: Yes - POLST Patient has POLST: No PD ED PE NORMAL - Vitals Vital signs reviewed: Yes - General General: Alert and oriented X 3, No acute distress - Extremities Extremities: Other (Clean linear laceration of the mid anterior left forearm just into subcutaneous fat measuring 5 cm. No distal neurovascular compromise.) - Neuro Neuro: Alert and oriented X 3, Normal speech Results - Vitals Vitals: Vital Signs - 24 hr 12/18/20 18:56 Temperature 37.5 C Heart Rate 86 Respiratory 16 Rate Blood Pressure 135/82 H O2 Saturation 98 Oxygen O2 Source Room air Procedures - Laceration (location) L forearm Length in cm: 5 Wound type: Linear Neurovascular status: Sensory intact, Motor intact, Vascular intact Tendon involvement: Tendon intact Anesthesia: Lidocaine 1%, With bicarb Wound preparation: Irrigated copiously NS Skin layer closure: Olena Other: Patient tolerated well, No complications, Neurovascular intact, Tetanus UTD PD MEDICAL DECISION MAKING - ED course ED course: And ancillary complaints of a left cervical lymph node repleted related to a bad tooth. Advised that he should follow-up with a dentist to have the tooth addressed if the lymph node is persistent ENT to have a biopsy Departure - Departure Disposition: 01 Home, Self Care Clinical Impression: Laceration Condition: Good Record reviewed to determine appropriate education?: Yes Instructions: ED Laceration All Comments: Come back for any signs of infection which would include: Redness, swelling, drainage, increased pain, or fevers. You can wash it soap and water. Keep it covered and moist with bacitracin ointment which is available over the counter; avoid neosporin. Follow-up with your physician in 10 days for suture/staple removal. It is very important that you follow-up with a dentist. When it comes to dental problems like yours, the emergency department can only offer a short-term solution to your long-term problem. A couple of low cost options for dental care include: [facility] in [place], calls [phone] for an appointment Or [facility] in [place], call [phone] for an appointment. If lymph node is persistent after addressing the bad tooth, he should follow-up with an ENT for biopsy, the closest is [facility], phone number is [phone].
== END 2020-12-18 19:56 | disposition home or self-care (01) ==
LOC: ED 18:49
DX: S51.812A Laceration without foreign body of left forearm, initial encounter (principal); W45.8XXA Other foreign body or object entering through skin, initial encounter; Y93.89 Activity, other specified; K08.89 Other specified disorders of teeth and supporting structures; F17.200 Nicotine dependence, unspecified, uncomplicated
CPT/HCPCS: 12002; 99281; 99282

== ENCOUNTER 2020-12-28 06:53 | Emergency (ER) | payer SELFPAY ==
--- OUTSIDE RECORDS SUMMARY | 2020-12-28 06:57 | EXTERNAL MEDICAL SUMMARY RPT | Continuity of Care Document ---
:1995 Demographics Phone Unavailable Preferred Language Unknown Marital Status Unknown Orthodox Affiliation Unknown Race Unknown Ethnic Group Unknown Author Organization [facility] Address [address] [place] [address] Phone Social History date description facility [phone]
[2020-12-28 07:04] VITALS: BP 142/85
--- OUTSIDE RECORDS SUMMARY | 2020-12-28 07:14 | EXTERNAL MEDICAL SUMMARY RPT | Continuity of Care Document ---
:1995 Demographics Phone Unavailable Preferred Language Unknown Marital Status Unknown Baptist Affiliation Unknown Race Unknown Ethnic Group Unknown Author Organization [facility] Address [address] [phone] Phone Social History date description facility [phone]
[2020-12-28] MEDS ORDERED: BACITRACIN ZINC OINT 1 PACKET TOP STA (07:20)
--- NOTE | 2020-12-28 07:23 | ED Physician Documentation ---
PD HPI WOUND RECHECK - Stated complaint Stated Complaint: SUTURE REMOVAL - Chief complaint Chief Complaint: Wound - Histroy obtained from History obtained from: Patient - History of Present Illness Location: Left Uppper Extremity Timing - onset: How many days ago (10) Pain level max: 0 Pain level now: 0 Associated symptoms: Redness (mild around peter). No: Fever, Swelling, Drainage, Pain, Other Review of Systems Constitutional: denies: Fever PD PAST MEDICAL HISTORY - Past Medical History Cardiovascular: None Respiratory: Asthma Neuro: None Endocrine/Autoimmune: None GI: None : None HEENT: None Psych: ADD/ADHD Musculoskeletal: None Derm: None - Past Surgical History Past Surgical History: No - Present Medications Home Medications: Ambulatory Orders Medication Instructions Recorded Confirmed Albuterol Sulf [Ventolin Hfa 2 puffs INH Q4HR PRN #1 inhaler 03/14/19 12/28/20 Inhaler] - Allergies Allergies/Adverse Reactions: Allergies Allergy/AdvReac Type Severity Reaction Status Date / Time lavender (Lavandula Allergy Unknown Verified 12/28/20 07:04 angustifolia) pomegranate Allergy Unknown Verified 12/28/20 07:04 metal Allergy Unknown Uncoded 12/28/20 07:04 - Social History Does the pt smoke?: Yes Smoking Status: Current every day smoker Does the pt drink ETOH?: Yes Does the pt have substance abuse?: Yes - Immunizations Immunizations are current?: Yes - POLST Patient has POLST: No PD ED PE NORMAL - Vitals Vital signs reviewed: Yes - General General: Alert and oriented X 3, No acute distress - Derm Derm: Warm and dry - Extremities Extremities: Other (Well-healed laceration to the left forearm. Minimal erythema around the base of the peter. No active drainage. No swelling.) - Neuro Neuro: Alert and oriented X 3 Results - Vitals Vitals: Vital Signs - 24 hr 12/28/20 07:02 Temperature 36.0 C L Heart Rate 80 Respiratory 16 Rate Blood Pressure 142/85 H O2 Saturation 100 Oxygen O2 Source Room air Procedures - Suture/staple Removal (location) Left forearm Suture/staple removal: # peter (all), No complications. No: Infected, Dehiscence PD MEDICAL DECISION MAKING - ED course Complexity details: considered differential, d/w patient ED course: [place] removed. Tolerated well. Warnings of infection and instructions on wound care given at bedside. Also counseled on how to minimize scarring. Patient counseled regarding signs and symptoms for which I believe and urgent re-evaluation would be necessary. Patient with good understanding of and agreement to plan and is comfortable going home at this time This document was made in part using voice recognition software. While efforts are made to proofread this document, sound alike and grammatical errors may occur. Departure - Departure Disposition: 01 Home, Self Care Clinical Impression: Removal of staple Condition: Good Instructions: ED Stap Removal No Complication Follow-Up: your,doctor as needed. [Other] Comments: Keep the wound clean. Return if you worsen. All peter were removed today.
== END 2020-12-28 07:41 | disposition home or self-care (01) ==
LOC: ED 06:53
DX: S51.812D Laceration without foreign body of left forearm, subsequent encounter (principal); X58.XXXD Exposure to other specified factors, subsequent encounter; F17.200 Nicotine dependence, unspecified, uncomplicated
CPT/HCPCS: 99282; A9270

== ENCOUNTER 2021-11-10 02:22 | Emergency (ER) | payer SELFPAY ==
[2021-11-10 02:33] VITALS: BP 169/94
--- NOTE | 2021-11-10 03:12 | ED Physician Documentation ---
PD HPI HEENT - Stated complaint Stated Complaint: MOUTH PAIN - Chief complaint Chief Complaint: Heent - History obtained from History obtained from: Patient - Additional information Additional information: Pt with R upper dental pain x 2 days.Denies any dental trauma.No fever or difficulty swallowing.Pain is sharp and throbbing. No radiation to the pain.States it feels better when he has water in his mouth.Has not tried any rqui-vao-dhkelhd medications for it. He does not currently have a dentist. Review of Systems Constitutional: denies: Fever Throat: reports: Dental pain / toothache Cardiac: denies: Chest pain / pressure Respiratory: denies: Dyspnea GI: denies: Abdominal Pain : denies: Dysuria Skin: denies: Rash Neurologic: denies: Generalized weakness PD PAST MEDICAL HISTORY - Past Medical History Past Medical History: Yes Cardiovascular: None Respiratory: Asthma Neuro: None Endocrine/Autoimmune: None GI: None : None HEENT: None Psych: ADD/ADHD Musculoskeletal: None Derm: None - Past Surgical History Past Surgical History: No - Present Medications Home Medications: Ambulatory Orders Medication Instructions Recorded Confirmed Albuterol Sulf [Ventolin Hfa 2 puffs INH Q4HR PRN #1 inhaler 03/14/19 11/10/21 Inhaler] Amox/Clav 875/125 [Augmentin] 1 each PO Q12H #20 tablet 11/10/21 - Allergies Allergies/Adverse Reactions: Allergies Allergy/AdvReac Type Severity Reaction Status Date / Time lavender (Lavandula Allergy Unknown Verified 11/10/21 02:32 angustifolia) pomegranate Allergy Unknown Verified 11/10/21 02:32 metal Allergy Unknown Uncoded 12/28/20 07:04 - Social History Does the pt smoke?: Yes Smoking Status: Current every day smoker Does the pt drink ETOH?: Yes Does the pt have substance abuse?: Yes - Immunizations Immunizations are current?: Yes - POLST Patient has POLST: No PD ED PE NORMAL - General General: Alert and oriented X 3, No acute distress, Well developed/nourished - HEENT HEENT: Atraumatic, PERRL, EOMI, Ears normal, Moist mucous membranes, Other (No oral swelling, no trismus,No drooling, normal voice). No: Dentition benign - Neck Neck: Supple, no meningeal sign - Respiratory Respiratory: No respiratory distress - Derm Derm: Normal color, Warm and dry - Neuro Neuro: Normal speech - Psych Psych: Normal mood, Normal affect PD ED PE EXPANDED - HEENT HEENT: Other (Poor dentition withMultiple teeth demonstrating signs of dental decay) HEENT Visual: 1 - tenderness Results - Vitals Vitals: Vital Signs - 24 hr 11/10/21 11/10/21 02:30 03:23 Temperature 36.2 C L Heart Rate 72 Respiratory 17 16 Rate Blood Pressure 169/94 H O2 Saturation 100 Oxygen O2 Source Room air PD MEDICAL DECISION MAKING - ED course ED course: Patient with 2 days of dental pain. No abscess on exam. No signs of airway compromise. Likely worsening pain due to infection. No signs of deep space infection or Loco's angina. Will start on antibiotics.Patient instructed that he needs to follow-up with a dentist And advised on return precautions. Departure - Departure Disposition: 01 Home, Self Care Clinical Impression: Dental infection Condition: Stable Instructions: ED Tooth Pain Prescriptions: Amox/Clav 875/125 [Augmentin] 1 each PO Q12H #20 tablet Comments: Please continue taking the antibiotics as prescribed. You need to have close de ntal follow-up and I encourage you to reach out to dentist tomorrow morning. Return to the emergency department if there are signs of worsening infection such as swelling, worsening pain, trouble swallowing or with any concerns. Your antibiotic prescription was sent to [facility]. Discharge Date/Time: 11/10/21 03:27
[2021-11-10] MEDS ORDERED: AMOX/CLAV 875 MG/125 MG TABLET PO STA (03:15)
[2021-11-10] MEDS ORDERED: HYDROcod/ACET 5/325 Prepack 4 PO STA (03:15)
== END 2021-11-10 03:27 | disposition home or self-care (01) ==
LOC: ED 02:22
DX: K04.7 Periapical abscess without sinus (principal); F17.200 Nicotine dependence, unspecified, uncomplicated
CPT/HCPCS: 99282; A9270

== ENCOUNTER 2021-11-11 01:28 | Emergency (ER) | payer SELFPAY ==
[2021-11-11 01:53] VITALS: BP 145/98
== END 2021-11-11 02:18 | disposition left against medical advice (07) ==
LOC: ED 01:28
DX: Z53.21 Procedure and treatment not carried out due to patient leaving prior to being seen by health care provider (principal)